=== PATIENT | female | born 1985 | race Caucasian/White ===

== ENCOUNTER 2017-01-17 17:58 | Emergency (ER) | payer BC ==
[2017-01-17] MEDS ORDERED: Ibuprofen 600 MG Tab PO ONE (20:01)
--- NOTE | 2017-01-17 20:14 | EDM.PDOC ---
ED HPI GENERAL MEDICAL PROBLEM - General Chief Complaint: Genitourinary Problem Stated Complaint: 6 DAYS POST , INFECTION DOWN BELOW [id number] Time Seen by Provider: 01/17/17 19:00 Source of Information: Reports: Patient History Limitations: Reports: No Limitations - History of Present Illness INITIAL COMMENTS - FREE TEXT/NARRATIVE: C/O increased pain and pressure in labia . Recent vaginal delivery of twins at 36 weeks. Notes 3 hours of pushing. Swelling post delivery and 2nd degree tear. Swelling had improved until this afternoon and this dao burning and pressure with urination. Stated she was group B+, had 2 antibiotics during delivery. 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 OB/BYN History: infertility, planning IVF for February Psychiatric History: Reports: Anxiety - Past Surgical History GI Surgical History: Reports: Cholecystectomy Musculoskeletal Surgical History: Reports: Arthroscopic Knee Social & Family History - Family History Family Medical History: Noncontributory - Tobacco Use Smoking Status *Q: Never Smoker Second Hand Smoke Exposure: No - Caffeine Use Caffeine Use: Reports: Coffee - Alcohol Use Days Per Week of Alcohol Use: 2 Number of Drinks Per Day: 2 Total Drinks Per Week: 4 - Recreational Drug Use Recreational Drug Use: No ED ROS GENERAL - Review of Systems Review Of Systems: ROS reveals no pertinent complaints other than HPI. ED EXAM, RENAL/ - Physical Exam Exam: See Below Exam Limited By: No Limitations General Appearance: Alert, Moderate Distress Ears: Normal External Exam Nose: Normal Inspection Throat/Mouth: Normal Inspection Head: Atraumatic, Normocephalic Neck: Normal Inspection. No: Lymphadenopathy (L), Lymphadenopathy (R) Respiratory/Chest: No Respiratory Distress, Lungs Clear Cardiovascular: Normal Peripheral Pulses, Regular Rate, Rhythm GI/Abdominal: Normal Bowel Sounds, Soft (Female) Exam: Other (scant vaginal bleeding, dark flow, left labia with gross soft swelling, inner edge abrasion, whitish granulation, ). No: Normal External Exam Neurological: Alert, Oriented, Normal Cognition Psychiatric: Normal Affect, Normal Mood Skin Exam: Warm, Dry Course - Vital Signs Last Recorded V/S: Last Vital Signs Temp 97.9 F 01/17/17 20:48 Pulse 77 01/17/17 20:48 Resp 20 01/17/17 20:48 BP 122/80 01/17/17 20:48 Pulse Ox 100 01/17/17 20:48 - Orders/Labs/Meds Labs: Laboratory Tests 01/17/17 01/17/17 01/17/17 Range/Units 18:25 19:41 19:41 WBC 14.9 H (5.0-10.0) 10^3/uL RBC 3.47 L (4.2-5.4) 10^6/uL Hgb 10.8 L D (12.0-16.0) g/dL Hct 32.4 L (37.0-47.0) % MCV 93.4 (80-100) fL MCH 31.1 (27.0-34.0) pg MCHC 33.3 (33.0-35.0) g/dL Plt Count 528 H D (150-450) 10^3/uL Neut % (Auto) 82.0 H (42.2-75.2) % Lymph % (Auto) 11.3 L (20.5-50.1) % [place] % (Auto) 6.0 (2-8) % Eos % (Auto) 0.5 L (1.0-3.0) % Baso % (Auto) 0.2 (0.0-1.0) % Sodium 134 L (135-145) mmol/L Potassium 3.4 L (3.6-5.0) mmol/L Chloride 100 L (101-111) mmol/L Carbon Dioxide 25.0 (21.0-31.0) mmol/L Anion Gap 12.4 BUN 6 L (7-18) mg/dL Creatinine 0.6 (0.6-1.3) mg/dL Est Cr Clr Drug Dosing 108.43 mL/min Estimated GFR (MDRD) > 60 BUN/Creatinine Ratio 10.00 Glucose 92 (74-105) mg/dL Calcium 9.0 (8.4-10.2) mg/dl Total Bilirubin 0.2 (0.2-1.0) mg/dL AST 47 H (10-42) IU/L ALT 37 (10-60) IU/L Alkaline Phosphatase 121 (42-121) IU/L Total Protein 6.8 (6.7-8.2) g/dl Albumin 3.5 (3.2-5.5) g/dl Globulin 3.3 Albumin/Globulin Ratio 1.06 Urine Color Straw (YELLOW) Urine Appearance Cloudy (CLEAR) Urine pH 7.0 (5.0-9.0) Ur Specific [place] 1.010 (1.005-1.030) Urine Protein Negative (NEGATIVE) Urine Glucose (UA) Negative (NEGATIVE) Urine Ketones Negative (NEGATIVE) Urine Occult Blood Moderate H (NEGATIVE) Urine Nitrite Negative (NEGATIVE) Urine Bilirubin Negative (NEGATIVE) Urine Urobilinogen 0.2 (0.2-1.0) mg/dL Ur Leukocyte Esterase Moderate H (NEGATIVE) Urine RBC 20-30 H /HPF Urine WBC >100 H (0-5/HPF) /HPF Ur Epithelial Cells Moderate H /HPF Amorphous Sediment Rare (0/HPF) /HPF Urine Bacteria Rare (0-FEW/HPF) /HPF Urine Mucus Few H /LPF Meds: Medications Discontinued Medications Generic Name Dose Route Start Last Admin Trade Name August PRN Reason Stop Dose Admin Ceftriaxone Sodium 1 gm/ 0 gm 01/17/17 20:37 01/17/17 20:46 Lidocaine HCl 2.1 ml IM 01/17/17 20:38 2.1 inj ONETIME ONE Administration Ibuprofen 600 mg 01/17/17 20:01 01/17/17 20:08 Motrin PO 01/17/17 20:02 600 mg ONETIME ONE Administration Departure - Departure Time of Disposition: 20:50 Disposition: Home, Self-Care 01 Condition: Fair Clinical Impression: UTI, Urinary tract infectious disease, Swelling of labia, pain - Discharge Information Instructions: Urinary Tract Infection, Adult, [id number] Forms: ED Department Discharge Additional Instructions: Follow up with Dr. Sutton in am Increase fluids cold pack to perineum tylenol for discomfort amoxicillin 500mg one three times daily for one week
[2017-01-17 20:33] LABS: CHLORIDE,CL 100 mmol/L (101-111); SODIUM,NA 134 mmol/L (135-145)
[2017-01-17] MEDS ORDERED: cefTRIAXone 1 GM, Lidocaine 1% 2.1 ML IM ONE ×2 (20:37)
[2017-01-17 20:49] VITALS: BP 122/80
== END 2017-01-17 20:59 | disposition home or self-care (01) ==
LOC: DL.ED 17:58
DX: O86.89 Other specified puerperal infections (principal); N39.0 Urinary tract infection, site not specified; R22.2 Localized swelling, mass and lump, trunk
CPT/HCPCS: 36415; 80053; 81001; 85025; 87040; 87086; 96372; 99283; A9270; J0696

== ENCOUNTER 2017-02-16 20:09 | Emergency (ER) | payer BC ==
[2017-02-16 20:24] VITALS: BP 113/80
--- NOTE | 2017-02-16 21:38 | EDM.PDOC ---
ED HPI GENERAL MEDICAL PROBLEM - General Chief Complaint: Skin Complaint Stated Complaint: POSSIBLE MESTITIS IN BREAST [id number] Time Seen by Provider: 02/16/17 21:24 Source of Information: Reports: Patient, RN, RN Notes Reviewed History Limitations: Reports: No Limitations - History of Present Illness INITIAL COMMENTS - FREE TEXT/NARRATIVE: Pt presents to the ER with c/o burning sensation and a reddened area on the left breast. She states she felt she had candidiasis, so she called her PCP and was given Nystatin. She is strictly pumping and bottle feeding her twins. Pt states she has felt lumps in the breast at times, but none at this time. Patient is tearful. 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 Bilateral Breast Pain Score (Numeric/FACES): 5 - Related Data Allergies Allergy/AdvReac Type Severity Reaction Status Date / Time No Known Allergies Allergy Verified 02/16/17 20:18 Home Meds: Home Meds Vit with Ca/FA/Iron [ Plus Iron] 1 tab PO DAILY 12/15/16 [ History] Acetaminophen [Tylenol Extra Strength] 1,000 mg PO Q6H 01/17/17 [History] Ibuprofen 600 mg PO Q6H 01/17/17 [History] Past Medical History - Past Health History Medical/Surgical History: Denies Medical/Surgical History Respiratory History: Reports: Asthma [employer] History: Reports: Other OB/BYN History: infertility, planning IVF for February Psychiatric History: Reports: Anxiety - Past Surgical History GI Surgical History: Reports: Cholecystectomy Musculoskeletal Surgical History: Reports: Arthroscopic Knee Social & Family History - Family History Family Medical History: Noncontributory - Tobacco Use Smoking Status *Q: Unknown Ever Smoked Second Hand Smoke Exposure: No - Caffeine Use Caffeine Use: Reports: Coffee - Alcohol Use Days Per Week of Alcohol Use: 1 Number of Drinks Per Day: 1 Total Drinks Per Week: 1 - Recreational Drug Use Recreational Drug Use: No ED ROS GENERAL - Review of Systems Review Of Systems: ROS reveals no pertinent complaints other than HPI. ED EXAM, SKIN/RASH Exam: See Below Exam Limited By: No Limitations General Appearance: Alert, WD/WN, No Apparent Distress Eye Exam: Bilateral Eye: EOMI, Normal Inspection Ears: Normal External Exam, Hearing Grossly Normal Nose: Normal Inspection Throat/Mouth: Normal Inspection, Normal Voice, No Airway Compromise Head: Atraumatic, Normocephalic Neck: Normal Inspection, Supple, Non-Tender, Full Range of Motion Respiratory/Chest: No Respiratory Distress, Lungs Clear, Normal Breath Sounds, No Accessory Muscle Use, Chest Non-Tender Cardiovascular: Normal Peripheral Pulses, Regular Rate, Rhythm, No Edema, No Gallop, No JVD, No Murmur, No Rub Peripheral Pulses: 2+: Radial (L), Radial (R) GI/Abdominal: Normal Bowel Sounds, Soft, Non-Tender, No Distention (Female) Exam: Deferred Rectal (Female) Exam: Deferred Back Exam: Normal Inspection, Full Range of Motion Extremities: Normal Inspection, Normal Range of Motion, Non-Tender, No Pedal Edema, Normal Capillary Refill Neurological: Alert, Oriented, CN II-XII Intact, Normal Cognition, Normal Gait, Normal Reflexes, No Motor/Sensory Deficits Psychiatric: Normal Affect, Normal Mood, Tearful (post ) Skin: Warm, Dry, Intact, Erythema (2cm x 2cm area of erythema, not induration or abscess/cellulitis), Other (some white cheese like discharge on the nipples bilaterally. Nipples and areola are erythematous and tender. ) Location, Skin: Other (Breasts bilaterally) Associated features: Warmth, Tenderness Lymphatic: No Adenopathy Course - Vital Signs Last Recorded V/S: Last Vital Signs Temp 97.6 F 02/16/17 20:23 Pulse 80 02/16/17 20:23 Resp 16 02/16/17 20:23 BP 113/80 02/16/17 20:23 Pulse Ox 100 02/16/17 20:23 Departure - Departure Time of Disposition: 21:35 Disposition: Home, Self-Care 01 Condition: Fair Clinical Impression: Mastitis without abscess, Candidiasis of breast - Discharge Information Instructions: Mastitis, [id number], Candidiasis and Forms: ED Department Discharge Additional Instructions: Continue using the Nystatin Dicloxacillin Follow up with your primary care facility if no improvement Express milk 8-12 times daily Massage as tolerated Increase water intake Warm or cold compresses as tolerated Call Greta Wong, Breast feeding counselor for further support
== END 2017-02-16 21:59 | disposition home or self-care (01) ==
LOC: DL.ED 20:09
DX: O91.23 Nonpurulent mastitis associated with lactation (principal); O98.83 Other maternal infectious and parasitic diseases complicating the puerperium; B37.9 Candidiasis, unspecified; O99.53 Diseases of the respiratory system complicating the puerperium; J45.909 Unspecified asthma, uncomplicated; Z79.899 Other long term (current) drug therapy
CPT/HCPCS: 99283